=== PATIENT | male | born 1995 | race American Indian/Alaskan Native ===

== ENCOUNTER 2020-01-21 01:28 | Emergency (ER) | payer SELFPAY ==
[2020-01-21 02:46] VITALS: BP 104/58
[2020-01-21] MEDS ORDERED: CLINDAMYCIN 150 MG/ML VIAL 6 ML IM STA (03:30)
--- NOTE | 2020-01-21 03:46 | Emergency Department Report ---
- General Chief complaint: Skin Rash Stated complaint: BUG BITES Time Seen by Provider: 01/21/20 03:20 Source: patient Mode of arrival: Ambulatory Limitations: No Limitations - History of Present Illness Initial comments: 24-year-old F [place] male presents emergency department complaining of possible insect bite to his face which is beginning to worsen over the last 2 to 3 days. Pain has become tender and swollen with continued redness. No visual changes no fever, chills, sweats no neck pain notes no odynophagia dysphagia Location: face Severity: mild, moderate Quality: dull Consistency: constant Improves with: none Worsens with: palpation - Related Data Previous Rx's Medication Instructions Recorded Last Taken Type Clindamycin [Clindamycin CAP] 300 mg PO Q6H #28 capsule 01/21/20 Unknown Rx predniSONE [Deltasone] 20 mg PO QDAY #5 tab 01/21/20 Unknown Rx Abscess Boil HPI - HPI Chief Complaint: Skin Rash Stated Complaint: BUG BITES Time Seen by Provider: 01/21/20 03:20 Home Medications: Previous Rx's Medication Instructions Recorded Last Taken Type Clindamycin [Clindamycin CAP] 300 mg PO Q6H #28 capsule 01/21/20 Unknown Rx predniSONE [Deltasone] 20 mg PO QDAY #5 tab 01/21/20 Unknown Rx ED Review of Systems ROS: Stated complaint: BUG BITES Other details as noted in HPI Comment: All other systems reviewed and negative ED Past Medical Hx - Social History Smoking Status: Never Smoker Substance Use Type: None - Medications Home Medications: Home Medications Medication Instructions Recorded Confirmed Last Taken Type Clindamycin [Clindamycin CAP] 300 mg PO Q6H #28 capsule 01/21/20 Unknown Rx predniSONE [Deltasone] 20 mg PO QDAY #5 tab 01/21/20 Unknown Rx ED Physical Exam - General Limitations: No Limitations General appearance: alert, in no apparent distress - Head Head exam: Present: atraumatic, normocephalic - Expanded Head Exam Expanded 1 - Cellulitis bite site 2 - Cellulitis tracking to this region - Eye Eye exam: Present: normal appearance, PERRL, EOMI, other (No signs of entrapment). Absent: nystagmus Pupils: Present: normal accommodation - ENT ENT exam: Present: normal exam, normal orophraynx, mucous membranes moist, TM's normal bilaterally - Neck Neck exam: Present: normal inspection, full ROM. Absent: tenderness, meningismus, lymphadenopathy - Respiratory Respiratory exam: Present: normal lung sounds bilaterally. Absent: respiratory distress, wheezes, rales, chest wall tenderness, accessory muscle use, decreased breath sounds - Cardiovascular Cardiovascular Exam: Present: regular rate, normal rhythm. Absent: systolic murmur, diastolic murmur, rubs, gallop - GI/Abdominal GI/Abdominal exam: Present: soft, normal bowel sounds - Rectal Rectal exam: Present: deferred - Extremities Exam Extremities exam: Present: normal inspection - Back Exam Back exam: Present: normal inspection - Neurological Exam Neurological exam: Present: alert, oriented X3 - Psychiatric Psychiatric exam: Present: normal affect, normal mood - Skin Skin exam: Present: warm, dry, intact, normal color. Absent: rash ED Course Vital Signs 01/21/20 02:19 Temperature 98.2 F Pulse Rate 96 H Respiratory 18 Rate Blood Pressure 104/58 O2 Sat by Pulse 96 Oximetry Critical care attestation.: If time is entered above; I have spent that time in minutes in the direct care of this critically ill patient, excluding procedure time. ED Disposition Clinical Impression: Facial cellulitis Disposition: DC-01 TO HOME OR SELFCARE Is pt being admited?: No Does the pt Need Aspirin: No Condition: Stable Instructions: Cellulitis (ED) Prescriptions: Clindamycin [Clindamycin CAP] 300 mg PO Q6H #28 capsule predniSONE [Deltasone] 20 mg PO QDAY #5 tab Referrals: [facility] [Provider Group] - 3-5 Days
== END 2020-01-21 04:26 | disposition home or self-care (01) ==
LOC: ED 01:28
DX: S00.86XA Insect bite (nonvenomous) of other part of head, initial encounter (principal); L03.211 Cellulitis of face; W57.XXXA Bitten or stung by nonvenomous insect and other nonvenomous arthropods, initial encounter; Y93.89 Activity, other specified; Y92.89 Other specified places as the place of occurrence of the external cause; Y99.8 Other external cause status
CPT/HCPCS: 96372; 99282